=== PATIENT | male | born 1960 | race Asian ===

== ENCOUNTER 2021-02-08 16:09 | Emergency (ER) | payer BC ==
[~2021-02-08] VITALS: Ht 170.2 cm; Wt 95.0 kg
[2021-02-08 16:18] VITALS: BP 135/68
--- NOTE | 2021-02-08 16:18 | NUR ---
NOSE CLAMP APPLIED
--- NOTE | 2021-02-08 17:31 | NUR ---
MD IS AT THE BEDSIDE TO ASSESS
[2021-02-08] MEDS ORDERED: COCAINE TOPICAL SOLN 4%, 4ML ONE (17:59)
[2021-02-08] MEDS ORDERED: COCAINE TOPICAL SOLN 4%, 4ML TP ONE (18:00)
--- NOTE | 2021-02-08 18:54 | NUR ---
PATRICIA (RN) IS ASSUMING CARE OF THIS PT AT THIS TIME. SBAR WAS EXCHANGED AT THE BEDSIDE.
--- NOTE | 2021-02-08 19:20 | NUR ---
PT UP TO RESTROOM STEADY GAIT, DENIES DIZZINESS.
== END 2021-02-08 20:12 | disposition home or self-care (01) ==
LOC: ED 18:19
DX: R04.0 Epistaxis (principal); I10 Essential (primary) hypertension; E11.9 Type 2 diabetes mellitus without complications; Z98.61 Coronary angioplasty status
CPT/HCPCS: 30901; 99283; 99284